=== PATIENT | female | born 1990 | race Caucasian/White ===

== ENCOUNTER 2019-04-01 10:34 | Emergency (ER) | payer OTHER ==
[~2019-04-01] VITALS: Ht 154.9 cm; Wt 56.8 kg
[2019-04-01 11:22] LABS: BASO % 0.3 % (0.0-1.0); EOS # 0.1 10^3/uL (0.0-0.50); EOS % 0.9 % (0.0-3.0); HEMATOCRIT 40.8 % (36.0-47.0); HEMOGLOBIN 13.8 g/dl (12.0-15.5); LYMPH # 1.1 10^3/uL (1.5-4.5); LYMPH % 8.3 % (24.0-44.0); MEAN CORPUSCULAR HEMOGLOBIN 32.5 pg (27.0-33.0); MEAN CORPUSCULAR HGB CONC 33.8 g/dl (32.0-36.5); MONO # 0.8 10^3/uL (0.0-0.8); MONO % 5.8 % (0.0-5.0); NEUTROPHILS % 84.2 % (36.0-66.0); PLATELET COUNT, AUTOMATED 258 10^3/uL (150-450); RED BLOOD COUNT 4.25 10^6/uL (4.00-5.40)
[2019-04-01 11:42] LABS: HCG, SERUM QUALITATIVE NEGATIVE (NEGATIVE)
[2019-04-01 11:45] LABS: ALBUMIN 4.2 GM/DL (3.2-5.2); ALT/SGPT 19 U/L (12-78); BILIRUBIN,DIRECT 0.1 MG/DL (0.0-0.2); BILIRUBIN,TOTAL 0.4 MG/DL (0.2-1.0); BLOOD UREA NITROGEN 15 MG/DL (7-18); CALCIUM LEVEL 9.8 MG/DL (8.5-10.1); CARBON DIOXIDE LEVEL 27 MEQ/L (21-32); CHLORIDE LEVEL 103 MEQ/L (98-107); CREATININE FOR GFR 0.86 MG/DL (0.55-1.30); GLOMERULAR FILTRATION RATE > 60.0 (>60); GLUCOSE, FASTING 105 MG/DL (70-100); LIPASE 90 U/L (73-393); POTASSIUM SERUM 4.2 MEQ/L (3.5-5.1); SODIUM LEVEL 138 MEQ/L (136-145); TOTAL PROTEIN 7.9 GM/DL (6.4-8.2)
--- NOTE | 2019-04-01 13:08 | REP ---
CT ABDOMEN AND PELVIS WITHOUT IV CONTRAST: CT abdomen and pelvis performed without oral or IV contrast. Sagittal and coronal reconstruction images are performed. Visualized lung bases demonstrate no infiltrate. The liver, gallbladder, spleen, adrenals, pancreas, and kidneys are grossly unremarkable. No renal, ureteral, or bladder calculus is seen. There is no hydroureteronephrosis. There is no abdominal aortic aneurysm. No adenopathy is seen. No free air is seen. I see no bowel wall thickening. There is no evidence of appendicitis. Trace free fluid is seen in the pelvis which is probably physiologic in nature. No gross abnormality is seen of either ovary. There does appear to be a superior fibroid projecting from the fundus on the left measuring 1.6 cm in diameter. Urinary bladder is not well distended and not well evaluated. IMPRESSION: No renal, ureteral or bladder calculus and no hydroureteronephrosis. No evidence of appendicitis. Fundal fibroid measures 1.6 cm. Trace free fluid in the pelvis is likely physiologic. No free air. No other acute finding. Electronically Signed by Shaquille Mason MD 04/02/2019 09:54 A
[2019-04-01] MEDS ORDERED: CIPR-249 PO (13:24)
[2019-04-01 13:34] VITALS: BP 132/65
== END 2019-04-01 13:36 | disposition home or self-care (01) ==
LOC: M ED 11:54
DX: N39.0 Urinary tract infection, site not specified (principal); D25.9 Leiomyoma of uterus, unspecified; Z88.0 Allergy status to penicillin; Z88.1 Allergy status to other antibiotic agents; Z88.2 Allergy status to sulfonamides

== ENCOUNTER 2020-06-06 16:55 | Inpatient (IN) | payer OTHER ==
[~2020-06-06] VITALS: Ht 154.9 cm; Wt 68.5 kg
[~2020-06-06 16:55] MED LIST: CIPR-249 PO; PREN29TA4 PO
[2020-06-06] MEDS ORDERED: TUMS500C PO (17:14)
[2020-06-06] MEDS ORDERED: VANCOMYCIN 1000MG/20ML VIAL As Ordered ONE (18:13)
[2020-06-06] MEDS ORDERED: LR 1,000 ML IV SCH (18:15)
[2020-06-06] MEDS ORDERED: VANCOMYCIN HCL 1,000 MG, VIAL MATE ADAPTER 1 EACH in D5W 250 ML IV SCH (18:15)
[2020-06-06] MEDS ORDERED: OXYTOCIN DRIP 30 UNITS in IV 1 EA IV SCH (18:15)
[2020-06-06 18:19] LABS: HEMATOCRIT 34.6 % (36.0-47.0); HEMOGLOBIN 11.4 g/dl (12.0-15.5); MEAN CORPUSCULAR HEMOGLOBIN 30.6 pg (27.0-33.0); MEAN CORPUSCULAR HGB CONC 32.9 g/dl (32.0-36.5); MEAN CORPUSCULAR VOLUME 92.8 fl (80.0-96.0); PLATELET COUNT, AUTOMATED 159 10^3/uL (150-450); RED BLOOD COUNT 3.73 10^6/uL (4.00-5.40); WHITE BLOOD COUNT 10.8 10^3/uL (4.0-10.0)
[2020-06-06] MEDS ORDERED: LACTATED RINGER'S 1000 ML IV ONE (18:30)
[2020-06-06 20:20] VITALS: BP 106/63
[2020-06-06 21:45] VITALS: BP 110/58
[2020-06-06 22:45] VITALS: BP 108/66
[2020-06-06] MEDS ORDERED: FENTANYL 2MCG/ML ROPIVACAINE 0.2% IN 0.9% NACL 100ML IVBAG As Ordered ONE (23:36)
[2020-06-07 00:21] LABS: CORD GAS ABE A -4.4; CORD GAS ABE V -4.5; CORD GAS HCO3 A 22.6 MEQ/L; CORD GAS HCO3 V 19.5 MEQ/L; CORD GAS O2 SAT A 52.6 %; CORD GAS PCO2 A 48.1 mmHg; CORD GAS PCO2 V 33.6 mmHg; CORD GAS PH A 7.289 UNITS; CORD GAS PH V 7.382 UNITS; CORD GAS PO2 A 24.1 mmHg; CORD GAS PO2 V 41.6 mmHg; CORD GAS SBC A 19.7 MEQ/L; CORD GAS SBC V 20.6 MEQ/L; CORD GAS TCO2 V 20.6 MEQ/L
[2020-06-07 00:30] VITALS: BP 118/71
[2020-06-07] MEDS ORDERED: OXYTOCIN INJ 10 UNITS/ML VIAL (J2590) IV ONE (00:45)
[2020-06-07] MEDS ORDERED: METHYLERGONOVINE MALEATE 0.2 MG TAB PO PRN (00:45)
[2020-06-07] MEDS ORDERED: EPIDURAL COMMENT XX SCH ×2 (00:45)
[2020-06-07] MEDS ORDERED: ANUSOL HC CREAM 30GM TOP PRN (00:45)
[2020-06-07] MEDS ORDERED: diphenhydrAMINE 50MG/ML VIAL (J1200) IV PRN ×2 (00:45)
[2020-06-07] MEDS ORDERED: EPIDURAL/PCA KEYS XX PRN ×2 (00:45)
[2020-06-07] MEDS ORDERED: IBUPROFEN 800 MG TAB PO PRN (00:45)
[2020-06-07] MEDS ORDERED: FENTANYL/ROPIVACAINE/NACL BAG 100 ML EPIDURAL SCH ×2 (00:45)
[2020-06-07] MEDS ORDERED: ACETAMINOPHEN 500 MG TAB PO PRN (00:45)
[2020-06-07] MEDS ORDERED: RHOGAM 300 MCG (1500 IU) INJ (J2790) IM SCH (00:45)
[2020-06-07] MEDS ORDERED: ACETAMINOPHEN TAB 650MG DOSE (2X325MG) PO PRN (00:45)
[2020-06-07] MEDS ORDERED: NALOXONE INJ 0.4MG/1ML VIAL (J2310 PER 1MG) IV PRN ×2 (00:45)
[2020-06-07] MEDS ORDERED: ONDANSETRON 4MG/2ML VIAL IV PRN ×2 (00:45)
[2020-06-07] MEDS ORDERED: REFRIGERATOR IV KEYS XX PRN ×2 (00:45)
[2020-06-07] MEDS ORDERED: OXYTOCIN DRIP 30 UNITS in IV 1 EA IV ONE (00:45)
[2020-06-07] MEDS ORDERED: DOCUSATE SODIUM 100 MG CAP PO PRN (00:45)
[2020-06-07] MEDS ORDERED: MOM 30ML SUSPENSION UDC PO PRN (00:45)
[2020-06-07] MEDS ORDERED: DIBUCAINE 1% OINTMENT 30GM TOP PRN (00:45)
[2020-06-07] MEDS ORDERED: LACTATED RINGER'S 1000 ML IV PRN (00:45)
[2020-06-07] MEDS ORDERED: ePHEDrine SULFATE 25 MG/5 ML(5MG/ML) SYRINGE IV PRN (00:45)
[2020-06-07] MEDS ORDERED: MEASLES,MUMPS,RUBELLA VACCINE INJ (MMR-II) (90707) SC SCH (00:45)
[2020-06-07 01:01] VITALS: BP 120/71
[2020-06-07 01:15] VITALS: BP 120/71
[2020-06-07 03:20] VITALS: BP 120/71
[2020-06-07 06:00] VITALS: BP 110/55
[2020-06-07] MEDS ORDERED: OXYTOCIN INJ 10 UNITS/ML VIAL (J2590) As Ordered ONE (07:42)
[2020-06-07] MEDS: PRENATAL VITAMINS CHEWABLE TABLET PO SCH (08:28)
[2020-06-07] MEDS: IBUPROFEN 600MG TAB PO PRN ×2 (08:28→19:38)
[2020-06-07 18:00] VITALS: BP 118/75
[2020-06-08] MEDS: IBUPROFEN 600MG TAB PO PRN (05:14)
[2020-06-08 05:55] VITALS: BP 115/70
[2020-06-08 06:21] LABS: HEMATOCRIT 34.6 % (36.0-47.0); HEMOGLOBIN 11.5 g/dl (12.0-15.5); MEAN CORPUSCULAR HEMOGLOBIN 31.3 pg (27.0-33.0); MEAN CORPUSCULAR HGB CONC 33.2 g/dl (32.0-36.5); MEAN CORPUSCULAR VOLUME 94.3 fl (80.0-96.0); PLATELET COUNT, AUTOMATED 165 10^3/uL (150-450); RED BLOOD COUNT 3.67 10^6/uL (4.00-5.40); WHITE BLOOD COUNT 13.8 10^3/uL (4.0-10.0)
[2020-06-08] MEDS ORDERED: IBUP80TA PO (07:13)
[2020-06-08] MEDS ORDERED: DIBU10OI TOP (07:13)
[2020-06-08] MEDS ORDERED: DOCU100C16 PO (07:13)
[2020-06-08] MEDS: PRENATAL VITAMINS CHEWABLE TABLET PO SCH (09:40)
--- NOTE | 2020-06-08 13:51 | HPE ---
DATE OF ADMISSION: 06/06/2020 This is a 29-year-old, 3, para 1, abortus 1, last menstrual period (LMP) 09/09/2019, estimated date of confinement (EDC) 06/15/2020 at 38 and 5 weeks of gestation with spontaneous rupture of membranes mild contractions, group B Streptococcus (GBS) positive. RISK FACTORS: She is Rh negative, Von Willebrands factor, echogenic focus cardiac, and GBS positive. PAST HISTORY: 1. 2010, at 38 weeks, spontaneous vaginal delivery, female, 6 pounds, 11 ounces. 2. 2018, spontaneous miscarriage at 6 weeks. LABORATORIES: O negative, HIV negative, hepatitis negative, RPR negative, Rubella immune, Varicella nonimmune, Pap is HPV positive, gonorrhea and chlamydia are negative, GTT was 82, GBS positive. Blood pressure 119/72, respirations 18, pulse 127, temperature is not recorded yet. On examination, category 1 strip, moderate variability, contractions are minimal, baseline was normal. No decelerations were noted. Sterile speculum examination: Pooled fluid in the cul-de-sac, fern positive, 4 cm, -3, 70% effaced, anterior. Our plan of management is to hydrate the patient, augment with Pitocin after 2 hours of failed increase of contractions, GBS prophylaxis with vancomycin. ALLERGIES: Patient has allergies to PENICILLIN, SULFA, and AMOXICILLIN. Epidural is required. The risks and benefits of vaginal delivery were discussed with the patient. This is delivery through the vagina. The possibility of use of augmenting medications such as Pitocin to help initiate or continue contractions and allow for possible spontaneous vaginal delivery. Risks and benefits of Pitocin are increased risk of tachysystole, increased risk of cardiac issues leading to possible section, increase in uterine atony post-delivery. The use of forceps or vacuum may be required if baby is unable to deliver with spontaneous pushing, maternal fatigue, or conditions that require immediate delivery. The risks of vaginal delivery include but are not limited to bleeding, infection, injury to the vagina, pelvic structures, injury to baby, damage to the uterus, reaction to anesthesia, uterine rupture, risk of hysterectomy for life-threatening bleeding issues. Vacuum or forceps may be used and increased risk of perineal and vaginal lacerations, risk of injury to bowel, incontinence, and for the baby bruising, scratches, hematomas, or intracranial bleed. Requirement of an episiotomy may be necessary and repair of same may be required. Emergency section if delivery required immediately for babys well being will be discussed with the provider and consent will be obtained. It is only performed for clinically indicated reasons. Patient expressed understanding of all of these. 40 minute discussion. We reviewed the antibiotic allergy list and vancomycin seems the appropriate antibiotic for the patient. On sensitivities it was resistant to penicillin, amoxicillin, but was sensitive to vancomycin. Again, all questions were answered. The patient expressed understanding. It is safe to proceed. MTDD
--- NOTE | 2020-06-09 08:06 | IPN ---
DATE: 06/07/2020 HISTORY: This lady is a 29-year-old 3, now para 2, that was admitted with contractions and spontaneous rupture of membranes at 38 and 5 weeks of gestation. She was GBS positive. Treated appropriately. Delivered a live female infant with no anesthesia, 7 pounds, 4 ounces, 3280 grams. Apgars 9 and 9 at one and five minutes respectively. Arterial pH 7.28, base excess -4.4, venous pH 7.38, base excess -4.5. This morning her blood pressure 120/71, respirations 18, pulse 71, temperature 98.7. She is voiding, passing gas, mobilizing, feeling well. Baby is doing well. Mother is anticipating going home either today or early tomorrow morning. She had a small first degree tear repaired in the usual fashion. The rest of the examination unremarkable. Normocephalic, atraumatic. Pupils are equal and reactive to light. Neck: Full range of motion. Distal pulses symmetric. No evidence of DVT, PE or superficial phlebitis. Chest: Clear bilaterally to the base, no wheezes or rhonchi. No CVA tenderness. Abdomen: Soft. Uterus 2 below. Four quadrant bowel sounds are noted. Perineum is intact and dry. SUMMARY: Term gestation, delivered a live female infant. Plan is for discharge tomorrow. Medication pickup at [facility] on Monday. All questions were answered, 20 minute discussion. [facility] NETWORKIsabella
--- NOTE | 2020-06-16 13:07 | DN ---
DATE OF DELIVERY: 06/07/2020 DESCRIPTION OF DELIVERY: This lady is a 29-year-old 3 para 2 was admitted in spontaneous labor, spontaneous rupture of membranes at 38 and 5 weeks of gestation. She was GBS positive and treated appropriately. She got to full dilatation and had a spontaneous vaginal delivery, a live female , 7 pounds 4 ounces, 3280 grams, apgars of 9 and 9 at 1 and 5 minutes respectively. Arterial pH 7.28, base excess -4.4, venous pH 7.38, base excess - 4.5. She had a small first degree tear which was oversewn in the usual fashion with 2-0 Vicryl and [id number]. The uterus contracted well on Pitocin. The patient and baby tolerated the procedure well. TIMUR
--- NOTE | 2020-06-23 12:45 | DSES ---
DATE OF ADMISSION: 06/06/2020 DATE OF DISCHARGE: 06/08/2020 BRIEF HISTORY: This lady is a 29 year old 3 now para 2 admitted as spontaneous rupture of membranes and contractions at 38 and 5 weeks of gestation, delivered a live female 7 pounds 4 ounces, 3280 grams. Apgars of 9 and 9 at 1 and 5 minutes respectively. Arterial pH 7.28, base excess -4.4, venous pH 7.38, base excess -4.5. She had a first degree repair. She was GBS positive treated prophylactically in time. On discharge, we discussed phlebitis, cystitis, mastitis, endometritis and cellulitis, diet, exercise, pain management, perineal, breast, and wound care. On discharge, her blood pressure was 115/70, respirations 18, pulse 69, temperature 98.0. Her admitting hemoglobin was 11.4, hematocrit 34.6, and platelets 159. Discharge hemoglobin 11.5, hematocrit 34.6, and platelets 165. The rest of the examination unremarkable. Normocephalic, atraumatic. Neck full range of motion. Pupils equal and reactive to light. Distal pulses are symmetric. No evidence of DVT, PE, or superficial phlebitis. Chest is clear to bilateral bases. No wheeze or rhonchi. No CVA tenderness. Four quadrant bowel sounds are noted. She has no urgency, frequency, nausea, vomiting, diarrhea, or constipation. SUMMARY: We have a term gestation, delivered a live female infant. 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 6 week check up at [facility]. Discharged improved. 20 minute discussion. All questions were answered. TIMUR
== END 2020-06-08 10:10 | disposition home or self-care (01) | DRG 807 ==
LOC: M LDO 16:55 → M LDI 17:29 → M OBS 06-07 03:15
PROVIDERS: ADMIT Obstetrics & Gynecology; ATTEND Obstetrics & Gynecology
PROC: 10E0XZZ Delivery of Products of Conception, External Approach (ICD-10-PCS; principal; 2020-06-07)
PROC: 0HQ9XZZ Repair Perineum Skin, External Approach (ICD-10-PCS; 2020-06-07)
DX: O99.824 Streptococcus B carrier state complicating childbirth (principal); Z37.0 Single live birth; Z3A.38 38 weeks gestation of pregnancy; O70.0 First degree perineal laceration during delivery